=== PATIENT | male | born 1995 | race Two or more races ===

== ENCOUNTER 2017-07-29 22:25 | Emergency (ER) | payer SELFPAY, OTHER ==
[2017-07-29 23:05] LABS: ADD MAN DIFF? NO
[2017-07-29 23:10] LABS: BASO % 1 % (0-3); EOS # 0.4 x10^3/uL (0.0-0.7); EOS % 5 % (0-3); HEMATOCRIT 42.6 % (39.0-53.0); HEMOGLOBIN 14.7 g/dL (13.0-17.5); LYMPH # 3.6 x10^3/uL (1.0-4.8); LYMPH % 52 % (24-48); MEAN CORPUSCULAR HEMOGLOBIN 30 pg (25-35); MEAN CORPUSCULAR HGB CONC 35 g/dL (31-37); MEAN CORPUSCULAR VOLUME 86 fL (79-100); MONO # 0.5 x10^3/uL (0.0-1.1); MONO % 7 % (0-9); NEUT # 2.5 x10^3uL (1.8-7.7); NEUT % 36 % (31-73); PLATELET COUNT 211 x10^3/uL (140-400); RED BLOOD COUNT 4.93 x10^6/uL (4.30-5.70); RED CELL DISTRIBUTION WIDTH 12.8 % (11.5-14.5); WHITE BLOOD COUNT 6.9 x10^3/uL (4.0-11.0)
[2017-07-29 23:18] LABS: ANION GAP 5 (6-14); BLOOD UREA NITROGEN 19 mg/dL (8-26); BUN/CREATININE RATIO 21 (6-20); CALCIUM 9.4 mg/dL (8.5-10.1); CARBON DIOXIDE 29 mmol/L (21-32); CHLORIDE 103 mmol/L (98-107); CREATININE 0.9 mg/dL (0.7-1.3); GFR 108.7; GLUCOSE 99 mg/dL (70-99); SODIUM 137 mmol/L (136-145)
[2017-07-29 23:24] LABS: ALBUMIN 4.1 g/dL (3.4-5.0); ALBUMIN/GLOBULIN RATIO 1.3 (1.0-1.7); ALK PHOS 115 U/L (46-116); ALT (SGPT) 33 U/L (16-63); AST (SGOT) 24 U/L (15-37); TOTAL BILIRUBIN 0.3 mg/dL (0.2-1.0); TOTAL PROTEIN 7.2 g/dL (6.4-8.2)
[2017-07-29 23:27] LABS: TROPONINI < 0.017 ng/mL (0.000-0.055)
== END 2017-07-29 23:53 | disposition home or self-care (01) ==
LOC: ER 22:25
DX: F41.9 Anxiety disorder, unspecified (principal); R07.89 Other chest pain; R06.02 Shortness of breath; F17.210 Nicotine dependence, cigarettes, uncomplicated
CPT/HCPCS: 36415; 71045; 80053; 84484; 85025; 93005; 96374; 99285-25; J2060

== ENCOUNTER 2019-01-07 12:02 | Emergency (ER) | payer SELFPAY ==
[~2019-01-07] VITALS: Ht 170.2 cm; Wt 75.7 kg
[~2019-01-07 12:02] MED LIST: FAMO-63 PO; LORA-434 PO
--- NOTE | 2019-01-07 12:27 | PHYS DOC ---
Past Medical History Past Medical History: No Pertinent History, Gallstones Past Surgical History: Other Additional Past Surgical Histo: kidney stones Alcohol Use: Occasionally Drug Use: None Adult General Chief Complaint Chief Complaint: CHEST WALL PAIN HPI HPI Patient is a 23 year old male patient who presents with intermittent daily chest pain 3 weeks. Pain is substernal described as sharp worse with deep breathing and is rated moderate to severe. Patient reports cough and fever 2 weeks ago when symptoms first began. Denies chills, nausea, vomiting or sweats. No abdominal pain or back pain. No leg pain or swelling. No history of DVT or PE. No medications or therapy's taken prior to ED arrival. Patient has not been evaluated for this complaint prior to today's ED visit. [] Review of Systems Review of Systems Review symptoms as per history of present illness. All other review symptoms are negative. All other systems were reviewed and found to be within normal limits, except as documented in this note. Current Medications Current Medications Current Medications Medications (Trade) Dose Ordered Sig/Macho Start Time Stop Time Status Last Admin Dose Admin Ibuprofen (Motrin) 600 mg 1X ONCE 01/07/19 12:30 01/07/19 12:31 DC 01/07/19 12:28 600 MG Allergies Allergies Allergies Coded Allergies Type Severity Reaction Last Updated Verified No Known Drug Allergies 06/19/13 No Physical Exam Physical Exam Constitutional: Well developed, well nourished, no acute distress, non-toxic appearance. [] HENT: Normocephalic, atraumatic, bilateral external ears normal, oropharynx moist, no oral exudates, nose normal. [] Eyes: PERRLA, EOMI, conjunctiva normal, no discharge. [] Neck: Normal range of motion, no tenderness, supple, no stridor. [] Cardiovascular:Heart rate regular rhythm, no murmur [] Lungs & Thorax: Bilateral breath sounds clear to auscultation [] Abdomen: Bowel sounds normal, soft, no tenderness, no masses, no pulsatile masses. [] Skin: Warm, dry, no erythema, no rash. [] Back: No tenderness, no CVA tenderness. [] Extremities: No tenderness, no cyanosis, no clubbing, ROM intact, no edema. [] Neurologic: Alert and oriented X 3, normal motor function, normal sensory function, no focal deficits noted. [] Psychologic: Affect normal, judgement normal, mood normal. [] Current Patient Data Vital Signs Vital Signs Date Time Temp Pulse Resp B/P (MAP) Pulse Ox O2 Delivery O2 Flow Rate FiO2 01/07/19 15:08 68 14 109/63 (78) 99 Room Air 01/07/19 12:02 97.7 97.7 Lab Values Laboratory Tests Test 01/07/19 13:30 White Blood Count 5.0 x10^3/uL (4.0-11.0) Red Blood Count 5.34 x10^6/uL (4.30-5.70) Hemoglobin 15.3 g/dL (13.0-17.5) Hematocrit 45.4 % (39.0-53.0) Mean Corpuscular Volume 85 fL (79-100) Mean Corpuscular Hemoglobin 29 pg (25-35) Mean Corpuscular Hemoglobin Concent 34 g/dL (31-37) Red Cell Distribution Width 12.3 % (11.5-14.5) Platelet Count 217 x10^3/uL (140-400) Neutrophils (%) (Auto) 53 % (31-73) Lymphocytes (%) (Auto) 35 % (24-48) Monocytes (%) (Auto) 7 % (0-9) Eosinophils (%) (Auto) 4 % (0-3) H Basophils (%) (Auto) 1 % (0-3) Neutrophils # (Auto) 2.7 x10^3/uL (1.8-7.7) Lymphocytes # (Auto) 1.8 x10^3/uL (1.0-4.8) Monocytes # (Auto) 0.3 x10^3/uL (0.0-1.1) Eosinophils # (Auto) 0.2 x10^3/uL (0.0-0.7) Basophils # (Auto) 0.0 x10^3/uL (0.0-0.2) Erythrocyte Sedimentation Rate 2 (0-15) D-Dimer (Thea) < 0.27 ug/mlFEU Sodium Level 139 mmol/L (136-145) Potassium Level 4.3 mmol/L (3.5-5.1) Chloride Level 103 mmol/L (98-107) Carbon Dioxide Level 26 mmol/L (21-32) Anion Gap 10 (6-14) Blood Urea Nitrogen 11 mg/dL (8-26) Creatinine 0.8 mg/dL (0.7-1.3) Estimated GFR (Cockcroft-Gault) 122.0 BUN/Creatinine Ratio 14 (6-20) Glucose Level 93 mg/dL (70-99) Calcium Level 9.3 mg/dL (8.5-10.1) Total Bilirubin 0.4 mg/dL (0.2-1.0) Aspartate Amino Transferase (AST) 27 U/L (15-37) Alanine Aminotransferase (ALT) 57 U/L (16-63) Alkaline Phosphatase 137 U/L (46-116) H Troponin I Quantitative < 0.017 ng/mL (0.000-0.055) C-Reactive Protein, Quantitative 2.7 mg/L (0-3.3) Total Protein 7.5 g/dL (6.4-8.2) Albumin 4.1 g/dL (3.4-5.0) Albumin/Globulin Ratio 1.2 (1.0-1.7) Lipase 87 U/L (73-393) Laboratory Tests 01/07/19 13:30 Laboratory Tests 01/07/19 13:30 EKG EKG [EKG: reviewed] Radiology/Procedures Radiology/Procedures [CXR: NAD per radiologist report.] Course & Med Decision Making Course & Med Decision Making Pertinent Labs and Imaging studies reviewed. (See chart for details) [Atypical chest pain most consistent with pleurisy. EKG imaging labs nondiagnostic. Will treat supportively with PCP follow-up. Return cautions rev iewed.] Dragon Disclaimer Dragon Disclaimer This electronic medical record was generated, in whole or in part, using a voice recognition dictation system. Departure Departure Impression: Primary Impression: Chest pain Additional Impression: Pleurisy Disposition: 01 HOME, SELF-CARE Condition: GOOD Referrals: NO PCP (PCP) Scripts Tramadol Hcl (TRAMADOL HCL) 50 Mg Tablet 50 MG PO Q6HRS PRN for PAIN for 5 Days, #15 TAB Prov: ANGELO MAN DO 01/07/19 Problem Qualifiers ANGELO MAN DO Jan 07, 2019 12:27
[2019-01-07] MEDS ORDERED: IBUPROFEN 200 MG TABLET. PO ONE (12:30)
--- NOTE | 2019-01-07 13:12 | RAD ---
CHEST PA LATERAL INDICATION: Chest pain. COMPARISON STUDY: 07/29/2017. FINDINGS: Lungs: Normal lung volume. No pulmonary mass or consolidation. The tracheobronchial tree and hilar structures are normal. Pleura: No pleural effusion or pneumothorax. Heart and Mediastinum: The cardiomediastinal silhouette is normal. The great vessels of the thorax are normal. Bones and Soft Tissues: The bones and soft tissues are within normal limits. IMPRESSION: No acute cardiopulmonary process. Electronically signed by: Pipe Andrews MD (01/07/2019 1:09 PM) [facility]
[2019-01-07 13:42] LABS: BASO % 1 % (0-3); EOS # 0.2 x10^3/uL (0.0-0.7); EOS % 4 % (0-3); HEMATOCRIT 45.4 % (39.0-53.0); HEMOGLOBIN 15.3 g/dL (13.0-17.5); LYMPH # 1.8 x10^3/uL (1.0-4.8); LYMPH % 35 % (24-48); MEAN CORPUSCULAR HEMOGLOBIN 29 pg (25-35); MEAN CORPUSCULAR HGB CONC 34 g/dL (31-37); MEAN CORPUSCULAR VOLUME 85 fL (79-100); MONO # 0.3 x10^3/uL (0.0-1.1); MONO % 7 % (0-9); NEUT # 2.7 x10^3/uL (1.8-7.7); NEUT % 53 % (31-73); PLATELET COUNT 217 x10^3/uL (140-400); RED BLOOD COUNT 5.34 x10^6/uL (4.30-5.70); RED CELL DISTRIBUTION WIDTH 12.3 % (11.5-14.5)
[2019-01-07 13:54] LABS: CALCIUM 9.3 mg/dL (8.5-10.1); CREATININE 0.8 mg/dL (0.7-1.3); POTASSIUM 4.3 mmol/L (3.5-5.1)
[2019-01-07 14:00] LABS: ALBUMIN 4.1 g/dL (3.4-5.0); ALBUMIN/GLOBULIN RATIO 1.2 (1.0-1.7); C-REACTIVE PROTEIN 2.7 mg/L (0-3.3); TOTAL BILIRUBIN 0.4 mg/dL (0.2-1.0); TOTAL PROTEIN 7.5 g/dL (6.4-8.2)
[2019-01-07 15:08] VITALS: BP 109/63
[2019-01-07] MEDS ORDERED: TRAM50TA PO (15:22)
--- NOTE | 2019-01-09 06:52 | EKG ---
[facility] [address] [place] [id number] Test Date: 2019-01-07 Test Time: 12:10:50 Pat Name: SHRUTHI YOUSIF Department: Room: Gender: M [employer]: : 1995 Requested By: ANGELO MAN Order Number: [id number] Reading MD: Measurements Intervals [place] Rate: 78 P: 28 RI: 186 QRS: 81 QRSD: 104 T: 31 QT: 348 QTc: 400 Interpretive Statements SINUS RHYTHM NON SPECIFIC ST-T ABNORMALITY (ELEVATION) OTHERWISE NORMAL ECG No previous ECG available for comparison
== END 2019-01-07 15:20 | disposition home or self-care (01) ==
LOC: ER 12:02
DX: R09.1 Pleurisy (principal); Z87.442 Personal history of urinary calculi
CPT/HCPCS: 36415; 71046; 80053; 83690; 84484; 85025; 85379; 85651; 86140; 93005; 99285